=== PATIENT | male | born 1995 ===

== ENCOUNTER 2017-04-17 09:46 | Emergency (ER) | payer BC ==
[2017-04-17 10:50] VITALS: BP 101/58
[2017-04-17] MEDS ORDERED: Ondansetron ODT TAB* 4 MG PO ONE (11:10)
[2017-04-17] MEDS ORDERED: NS 0.9% 1000 ML* 1,000 ML IV ONE (11:26)
[2017-04-17] MEDS ORDERED: Ondansetron INJ* 2 MG/ML VIAL IV ONE (11:27)
--- NOTE | 2017-04-17 11:34 | UC ---
Nausea/Vomiting/Diarrhea HPI - HPI Summary HPI Summary: Vomiting and diarrhea starting today. No pain, fever, blood. He had hernia surgery as a baby. NO distension or tenderness. This feels similar to prior episode that resolved without complication. - History of Current Complaint Chief Complaint: UCGI Stated Complaint: VOMITING DIARRHEA Time Seen by Provider: 04/17/17 11:21 Hx Obtained From: Patient Onset/Duration: Gradual Onset, Lasting Hours Timing: Constant Severity Initially: Moderate Severity Currently: Moderate Location: Other - no pain. Aggravating Factor(s): Food Alleviating Factor(s): Nothing Nausea/Vomiting Presence: Vomiting Vomiting Characteristics: Retching, Bilious Diarrhea Characteristics: Watery - Risk Factors Influenza Risk Factors: Negative Surgical Obstruction Risk Factor(s): Negative - Allergies/Home Medications Allergies/Adverse Reactions: Allergies Allergy/AdvReac Type Severity Reaction Status Date / Time seasonal Allergy Eyes Uncoded 04/17/17 10:50 Itchy/Swollen/Red/Watery PMH/Surg Hx/FS Hx/Imm Hx - Additional Past Medical History Additional PMH: prior hernia. Previously Healthy: Yes - Surgical History Surgical History: Yes Surgery Procedure, Year, and Place: hernia as infant - Family History Known Family History: Positive: Other - no related GI family history. - Social History Occupation: Student Alcohol Use: None - denies etoh last night. Substance Use Type: None Smoking Status (MU): Never Smoked Tobacco Review of Systems Gastrointestinal: Vomiting, Diarrhea All Other Systems Reviewed And Are Negative: Yes Physical Exam Triage Information Reviewed: Yes Appearance: Well-Appearing, No Pain Distress, Well-Nourished Vital Signs: Initial Vital Signs Temp 98.7 F 04/17/17 10:36 Pulse 93 04/17/17 10:36 Resp 18 04/17/17 10:36 BP 101/58 04/17/17 10:36 Vital Signs Reviewed: Yes Eyes: Positive: Conjunctiva Clear ENT: Positive: Other - pharynx moist. Neck: Positive: Supple, Nontender, No Lymphadenopathy Respiratory: Positive: Chest non-tender, Lungs clear, Normal breath sounds, No respiratory distress, No accessory muscle use. Negative: Respiratory distress, Decreased breath sounds, Accessory muscle use, Crackles, Rhonchi, Stridor Cardiovascular: Positive: RRR, No Murmur, Pulses Normal Abdomen Description: Positive: Nontender, No Organomegaly, Soft Musculoskeletal Exam: Normal Musculoskeletal: Positive: Strength Intact, ROM Intact, No Edema Neurological: Positive: Alert, Muscle Tone Normal. Negative: Fatigued Psychological Exam: Normal Psychological: Positive: Age Appropriate Behavior Skin: Negative: rashes Naus/Vom/Diarrhea Course/Dx - Course Course Of Treatment: IV fluids and zofran. REhydration orally described as well. No signs of obstruction, serious infection. - Differential Dx/Diagnosis Provider Diagnoses: viral gastroenteritis. Condition At Discharge: Good Discharge - Discharge Plan Condition: Good Disposition: HOME Prescriptions: Ondansetron ODT TAB* [Zofran 4 MG Odt TAB*] 4 mg PO Q8H PRN #12 tab.odt PRN Reason: Nausea Patient Education Materials: Acute Nausea and Vomiting (ED) Additional Instructions: Follow up with student health if not feeling better in 1-2 days.
== END 2017-04-17 12:55 | disposition home or self-care (01) ==
LOC: UCCORT 09:46
DX: A08.4 Viral intestinal infection, unspecified (principal)
CPT/HCPCS: 96360; 96374; 99202; A9270-GY; G0463; J2405